=== PATIENT | male | born 1945 | race Hispanic/Latino ===

== ENCOUNTER → 2018-10-19 | Day surgery (SDC) | payer MEDICARE, BC ==
[2018-10-17 09:24] LABS: BASOPHILS % 0.7 % (0.0-1.0); EOSINOPHILS # (AUTO) 0.3 (0.0-0.4); EOSINOPHILS % 5.7 % (0.0-6.0); HEMATOCRIT 45.6 % (38.2-49.6); HEMOGLOBIN 15.6 g/dL (14.0-18.0); LYMPHOCYTES # (AUTO) 1.7 (1.0-3.2); LYMPHOCYTES % 28.9 % (18.0-39.1); MEAN CORPUSCULAR HEMOGLOBIN 31.3 pg (28-32); MEAN CORPUSCULAR HGB CONC 34.2 g/dL (31-35); MEAN CORPUSCULAR VOLUME 91.6 fL (81-99); MONOCYTES # (AUTO) 0.4 (0.2-0.8); MONOCYTES % 6.6 % (4.4-11.3); NEUTROPHILS # (AUTO) 3.3 (2.1-6.9); NEUTROPHILS % 57.8 % (38.7-80.0); PLATELET COUNT 189 x10e3/uL (140-360); RED BLOOD COUNT 4.98 x10e6/uL (4.3-5.7)
[2018-10-17 09:49] LABS: ANION GAP 9.8 mmol/L (8-16); BLOOD UREA NITROGEN 16 mg/dL (7-26); BUN/CREATININE RATIO 21 (6-25); CALCIUM 9.5 mg/dL (8.4-10.2); CARBON DIOXIDE 25 mmol/L (22-29); CHLORIDE 106 mmol/L (98-107); CREATININE, SERUM 0.76 mg/dL (0.72-1.25); EST GLOMERULAR FILTRATION RATE > 60 ML/MIN (60-); GLUCOSE 120 mg/dL (74-118); POTASSIUM 3.8 mmol/L (3.5-5.1); SODIUM 137 mmol/L (136-145)
--- NOTE | 2018-10-17 11:03 | Diagnostic Imaging Report ---
EXAM: CHEST 2 VIEWS, PA and lateral DATE: 10/17/2018 Time stamp on exam: 9:17 AM INDICATION: Preoperative for prostate surgery COMPARISON: None FINDINGS: LINES/TUBES: None LUNGS: No consolidations or edema. PLEURA: No effusions or pneumothorax. HEART AND MEDIASTINUM: Normal size and contour. BONES AND SOFT TISSUES: No acute findings. Degenerative changes at the right AC joint. IMPRESSION: No acute thoracic abnormality. Signed by: Dr. Alex Ramirez DO on 10/17/2018 11:00 AM
[~2018-10-19] MED LIST: BELLADONNA/OPIUM 60 MG SUPP PR ONE; CEFTRIAXONE SOD 1 GM/NS 50 ML 50 ML IV ONE; DEXAMETHASONE SOD PHOS INJ 4 MG/ML VIAL ONE; FENTANYL CITRATE/PF 100MCG/2 ML INJ ONE; LIDOCAINE HCL 2% LOCAL INJ 5 ML SDV VIAL INJ ONE; MIDAZOLAM HCL 2 MG/2 ML VIAL ONE; MULTIVITAMINS1 EAC7 PO; ONDANSETRON HCL INJ 2MG/ML 2ML 2 MG/ML VIAL ONE; PROPOFOL IV EMULSION 10 MG/ML 20 ML VIAL ONE; SEVOFLURANE INHAL SOLN 250 ML PEN BTL ONE
--- OUTSIDE RECORDS SUMMARY | 2018-10-19 06:59 | XMS REPORT | Continuity of Care Document ---
Author Author [facility] Organization [facility] Address Unknown Phone Unavailable Care Team Providers Care Tax Compliance Officer Name Role Phone MD Jordy, Lauren HEATON Unavailable Insurance Providers Payer name Policy type / Coverage type Policy ID Covered constitution party ID Policy [place] [place] [employer] Encounters Encounter Performer Location Date Office Visit Lauren Spence MD [facility] Apr 18, 2014 Problems Problem Effective Dates Problem Status PROSTATITIS, ACUTE Mar 14, 2013 Active HYPERGLYCEMIA, BORDERLINE Mar 14, 2013 Active FATIGUE Mar 14, 2013 Active BENIGN PROSTATIC HYPERTROPHY, WITH URINARY OBSTRUCTION Mar 22, 2013 Active PREMATURE EJACULATION Mar 22, 2013 Active NEED PROPHYLACTIC VACCINATION&INOCULATION FLU Apr 12, 2013 Active SCREENING FOR MALIGNANT NEOPLASMS OF COLON Apr 18, 2014 Active CHEST DISCOMFORT, ATYPICAL Apr 18, 2014 Active NEED FOR PROPHYLACTIC VACCINATION WITH STREPTOCOCCUS PNEUMONIAE (PNEUMOCOCCUS) AND INFLUENZA Apr 18, 2014 Active NEED FOR PROPHYLACTIC VACCINATION AND INOCULATION AGAINST INFLUENZA Apr 18, 2014 Active NEED FOR PROPHYLACTIC VACCINATION AGAINST STREPTOCOCCUS PNEUMONIAE [PNEUMOCOCCUS] Apr 18, 2014 Active PREVENTIVE HEALTH CARE Apr 18, 2014 Active Procedures Date Description Comments Mar 14, 2013 smoking status never smoker Apr 18, 2014 smoking status Never smoker Medications Medication Instructions Start Date Status MULTIVITAL TABS One po daily Mar 14, 2013 Active VITAMIN C 500 MG TABS One po daily Mar 14, 2013 Active CALCIUM + D 600-200 MG-UNIT TABS One po daily Mar 14, 2013 Active Immunizations Vaccine Date Status influenza immunization (Flu Vax) has been administered Apr 12, 2013 completed Vital Signs Date Description Test Result Mar 14, 2013 weight E&M - 3141-9 WEIGHT 156.8 lb Mar 14, 2013 height E&M - 8302-2 HEIGHT 69 in Mar 14, 2013 temperature E&M TEMPERATURE 96.4 deg f Mar 14, 2013 blood pressure, systolic - 8480-6 BP SYSTOLIC 120 mm Hg Mar 14, 2013 blood pressure, diastolic - 8462-4 BP DIASTOLIC 71 mm Hg Mar 14, 2013 pulse rate E&M - 8867-4 PULSE RATE 54 /min Mar 22, 2013 weight E&M - 3141-9 WEIGHT 162.0 lb Mar 22, 2013 blood pressure, systolic - 8480-6 BP SYSTOLIC 141 mm Hg Mar 22, 2013 blood pressure, diastolic - 8462-4 BP DIASTOLIC 62 mm Hg Mar 22, 2013 pulse rate E&M - 8867-4 PULSE RATE 55 /min Mar 22, 2013 temperature E&M TEMPERATURE 95.5 deg f Apr 12, 2013 weight E&M - 3141-9 WEIGHT 162.0 lb Apr 12, 2013 temperature E&M TEMPERATURE 96.1 deg f Apr 12, 2013 pulse rate E&M - 8867-4 PULSE RATE 64 /min Apr 12, 2013 blood pressure, systolic - 8480-6 BP SYSTOLIC 149 mm Hg Apr 12, 2013 blood pressure, diastolic - 8462-4 BP DIASTOLIC 69 mm Hg Apr 18, 2014 height E&M - 8302-2 HEIGHT 69 in Apr 18, 2014 weight Gregg&Neelima - 3141-9 WEIGHT 163.13 lb Apr 18, 2014 blood pressure, systolic - 8480-6 BP SYSTOLIC 137 mm Hg Apr 18, 2014 blood pressure, diastolic - 8462-4 BP DIASTOLIC 82 mm Hg Apr 18, 2014 temperature E&M TEMPERATURE 96.2 deg f Apr 18, 2014 pulse rate E&M - 8867-4 PULSE RATE 52 /min Results Date Description Test Name Value Reference Interpretation Status Mar 14, 2013 hemoglobin, blood HGB 15.2 g/dL 14.0-18.0 Mar 14, 2013 hematocrit, blood HCT 45.3 % 42.0-54.0 Mar 14, 2013 platelet count PLATELETS 188 K/CMM /mm3 133-450 May 01, 2014 hemoglobin, blood HGB 15.3 g/dL 14.0-18.0 May 01, 2014 hematocrit, blood HCT 45.9 % 42.0-54.0 May 01, 2014 platelet count PLATELETS 217 K/CMM /mm3 133-450 Mar 14, 2013 urine color UA COLOR Yellow null Yellow Mar 14, 2013 bacteria, urine microscopy BACTERIA URN Occasional null None Seen May 01, 2014 urine color UA COLOR Yellow null Yellow May 01, 2014 bacteria, urine microscopy BACTERIA URN Occasional null None Seen Mar 14, 2013 prostate specific antigen PSA 3.47 ng/mL 0.00-4.00 Mar 14, 2013 cholesterol, serum CHOLESTEROL 158 mg/dl <=199 Mar 14, 2013 triglyceride, serum, fasting TRIGLYCERIDE 134 mg/dl <=149 Mar 14, 2013 HDL cholesterol, serum HDL 47 mg/dl >=61 Low Mar 14, 2013 LDL cholesterol, serum LDL 84 mg/dl <=99 Mar 14, 2013 sodium, serum SODIUM 142 MEQ/L mmol/L 135-145 Mar 14, 2013 potassium, serum POTASSIUM 4.1 MEQ/L mmol/L 3.5-5.1 Mar 14, 2013 creatinine, serum CREATININE 0.6 mg/dL 0.5-1.4 Mar 14, 2013 urea nitrogen, blood BUN 15 mg/dL 7-22 Mar 14, 2013 urea nitrogen/creatinine ratio, serum BUN/CREAT 25 null 6-25 Mar 14, 2013 albumin, serum ALBUMIN 4.3 g/dL 3.5-5.0 Mar 14, 2013 calcium, serum CALCIUM 9.0 mg/dL 8.5-10.5 Mar 14, 2013 alanine aminotransferase (SGPT), serum SGPT (ALT) 27 U/L 0-65 Mar 14, 2013 aspartate aminotransferase (SGOT), serum SGOT (AST) 18 U/L 0-37 Mar 14, 2013 alkaline phosphatase, serum ALK PHOS 82 U/L 39-136 Mar 14, 2013 thyroxine, serum, free T4, FREE 0.76 ng/dl 0.76-1.46 Mar 14, 2013 thyroid stimulating hormone, serum TSH 1.690 uIU/mL 0.360-3.740 Mar 22, 2013 occult blood, stool (E&M) HEMOCCULT Negative null Negative Mar 22, 2013 occult blood, stool (E&M) HEMOCCULT Negative null Negative Mar 22, 2013 occult blood, stool (E&M) HEMOCCULT Negative null Negative May 01, 2014 cholesterol, serum CHOLESTEROL 156 mg/dl <=199 May 01, 2014 triglyceride, serum, fasting TRIGLYCERIDE 117 mg/dl <=149 May 01, 2014 HDL cholesterol, serum HDL 51 mg/dl >=61 Low May 01, 2014 LDL cholesterol, serum LDL 82 mg/dl <=99 May 01, 2014 sodium, serum SODIUM 141 MEQ/L mmol/L 135-145 May 01, 2014 potassium, serum POTASSIUM 4.7 MEQ/L mmol/L 3.5-5.1 May 01, 2014 creatinine, serum CREATININE 0.7 mg/dL 0.5-1.4 May 01, 2014 urea nitrogen, blood BUN 15 mg/dL 7-22 May 01, 2014 urea nitrogen/creatinine ratio, serum BUN/CREAT 21 null 6-25 May 01, 2014 albumin, serum ALBUMIN 4.1 g/dL 3.5-5.0 May 01, 2014 calcium, serum CALCIUM 8.9 mg/dL 8.5-10.5 May 01, 2014 alanine aminotransferase (SGPT), serum SGPT (ALT) 31 U/L 0-65 May 01, 2014 aspartate aminotransferase (SGOT), serum SGOT (AST) 22 U/L 0-37 May 01, 2014 alkaline phosphatase, serum ALK PHOS 75 U/L 39-136 May 01, 2014 ferritin, serum FERRITIN 198 ng/mL 22-275 May 01, 2014 thyroid stimulating hormone, serum TSH 1.340 uIU/mL 0.360-3.740 May 01, 2014 prostate specific antigen PSA 4.41 ng/mL 0.00-4.00 High
--- OUTSIDE RECORDS SUMMARY | 2018-10-19 06:59 | XMS REPORT ---
[facility] Address Unknown Phone Unavailable Care Team Providers Care Running Specialist Name Role Phone Isaac BARTH Unavailable Unavailable Problems This patient has no known problems. Allergies, Adverse Reactions, Alerts This patient has no known allergies or adverse reactions. Medications This patient has no known medications. Results Test Description Test Time Test Comments Text Results Atomic Results Result Comments CHEST 2 VIEWS 2018-10-17 10:58:00 [place] [address] Patient Name: ABISAI KELLOGG MR #: [id number] : 1945 Age/Sex: 73/M Req #: [id number] Adm Physician: Ordered by: MAGED BARTH MD Report #: [id number] Location: OR Room/Bed: Procedure: [id number] DX/CHEST 2 VIEWS Exam Date: 10/17/18 Exam Time: 0910 REPORT STATUS: Signed EXAM: CHEST 2 VIEWS, PA and lateral DATE: 10/17/2018 Time stamp on exam: 9:17 AM INDICATION: Preoperative for prostate surgery COMPARISON: None FINDINGS: LINES/TUBES: None LUNGS: No consolidations or edema. PLEURA: No effusions or pneumothorax. HEART AND MEDIASTINUM: Normal size and contour. BONES AND SOFT TISSUES: No acute findings. Degenerative changes at the right AC joint. IMPRESSION: No acute thoracic abnormality. Signed by: Dr. Quan Ramirez DO on 10/17/2018 11:00 AM Dictated By: QUAN RAMIREZ DO 1100 Transcribed By: RAY on 10/17/181099 COPY TO: MAGED BARTH MD
--- OUTSIDE RECORDS SUMMARY | 2018-10-19 06:59 | XMS REPORT | Clinical Summary ---
Author Author [facility] Address Unknown Phone Unavailable Care Team Providers Care Cloth Grader Name Role Phone Lauren Spence MD PCP Allergies No Known Allergies Medications End Date Status Medication Sig Dispensed Refills Start Date Active MULTIVITAMIN ORAL None Entered 0 Active sildenafil (VIAGRA) 100 Take 1 tablet 10 tablet 0 03/21/201 MG tabletIndications: (100 mg 8 Elevated PSA total) by mouth daily as needed for erectile dysfunction. Active Problems Problem Noted Date Elevated PSA 05/15/2017 Encounters Care Team Description Date Type Specialty Lauren Spence MD Annual visit for general adult medical examination with abnormal findings (Primary Dx); Elevated PSA; Mild hyperlipidemia; Midline low back pain without sciatica, unspecified chronicity; Skin abnormality; BMI 24.0-24.9, adult; Need for vaccination 03/21/2018 Office Visit Family Medicine after 10/18/2017 Immunizations Name Dates Previously Given Next Due FLUZONE HIGH-DOSE PF 03/21/2018, 05/04/2017 Family History Medical History Relation Name Comments Dementia Father Relation Name Status Comments Father Social History Date Tobacco Use Types Packs/Day Years Used Never Smoker Smokeless Tobacco: Never Used Alcohol Use Drinks/Week oz/Week Comments No Sex Assigned at Date Recorded Not on file Industry Job Start Date Occupation Not on file Not on file Not on file Travel End Travel History Travel Start No recent travel history available. Last Filed Vital Signs Time Taken Vital Sign Reading 03/21/2018 8:55 AM CDT Blood Pressure 137/74 03/21/2018 8:55 AM CDT Pulse 56 03/21/2018 8:55 AM CDT Temperature 36.8 C (98.3 F) 03/21/2018 8:55 AM CDT Respiratory Rate 20 03/21/2018 8:55 AM CDT Oxygen Saturation 98% - Inhaled Oxygen - Concentration 03/21/2018 8:55 AM CDT Weight 76.4 kg (168 lb 6.4 oz) 03/21/2018 8:55 AM CDT Height 175.3 cm (5' 9") 03/21/2018 8:55 AM CDT Body Mass Index 24.87 Plan of Treatment Health Maintenance Due Date Last Done Comments COLON CANCER SCREENING 02/05/1996 SHINGLES VACCINES (#1) 02/05/1996 65+ PNEUMOCOCCAL VACCINE 2011 (1 of 2 - PCV13) PNEUMOCOCCAL 2011 POLYSACCHARIDE VACCINE AGE 65 AND OVER INFLUENZA VACCINE 01/25/2019 03/21/2018, 05/04/2017 Procedures Comments Procedure Name Priority Date/Time Associated Diagnosis PSA, FREE Routine 03/21/2018 9:43 AM CDT PSA, TOTAL WITH REFLEX TO Routine 03/21/2018 Annual visit for general FREE 9:43 AM CDT adult medical examination with abnormal findings Elevated PSA URINALYSIS, COMPLETE, Routine 03/21/2018 Annual visit for general WITH REFLEX TO CULTURE 9:43 AM CDT adult medical examination with abnormal findings TSH REFLEX TO T4F Routine 03/21/2018 Annual visit for general 9:43 AM CDT adult medical examination with abnormal findings LIPID PANEL Routine 03/21/2018 Annual visit for general 9:43 AM CDT adult medical examination with abnormal findings Mild hyperlipidemia HEMOGLOBIN A1C Routine 03/21/2018 Annual visit for general 9:43 AM CDT adult medical examination with abnormal findings COMPREHENSIVE METABOLIC Routine 03/21/2018 Annual visit for general PANEL 9:43 AM CDT adult medical examination with abnormal findings CBC WITH PLATELET AND Routine 03/21/2018 Annual visit for general DIFFERENTIAL 9:43 AM CDT adult medical examination with abnormal findings after 10/18/2017 Results * PSA, free (03/21/2018 9:43 AM CDT) PSA, free 0.8 ng/mL [facility] II PSA, free percent 16 (L) >25 % (calc) [facility] Comment: [facility] PSA(ng/mL)Free II PSA(%) Estimated(x) Probability of Cancer(as%) 0-2.5 (*) Approx. 1 2.6-4.0(1) 0-27(2) 24(3) 4.1-10(4)0 -10 56 11-15 28 16-20 20 21-25 16 >or=26 8 >10(+) N/A >50 References:(1)Anthony et al.:Urology 60: 469-474 (2001) (2)Anthony et al.:J.Urol 168: 922-925 (2001) Fr ee PSA(%) Sensitivity(%)Specificity( %) < ii=5865 19 < ad=1822 9 (3)Marcusona et al.:ABDULLAHI 277: 9491-5442 (1996) (4)Catalona et al.:ABDULLAHI 279: 4725-9196 (1997) (x)These estimates vary with age, ethnicity, family history and DAINA results. (*)The diagnostic usefulness of % Free PSA has not been established in patients with total PSA below 2.6 ng/mL (+)In men with PSA above 10 ng/mL, prostate cancer risk is determined by total PSA alone. The Total PSA value from this assay system is standardized against the equimolar PSA standard. The test result will be approximately 20% higher when compared to the WHO-standardized Total PSA (Siemens assay). Comparison of serial PSA results should be interpreted with this fact in mind. PSA was performed using the Elisabet Anjali Immunoassay method. Values obtained from different assay methods cannot be used interchangeably. PSA levels, regardless of value, should not be interpreted as absolute evidence of the presence or absence of disease. Narrative Performed At FASTING:YES [facility] FASTING: YES Resulting Agency Comment Performing Organization Information: Site ID: [id number] Name: [facility] Address: [address] [place] [address] Director: Dr. Rojelio Jaramillo Performing Organization Address City/State/Zipcode Phone Number [facility] [address] [facility]. [place] [address] II * URINALYSIS, COMPLETE, WITH REFLEX TO CULTURE (03/21/2018 9:43 AM CDT) Color, UA YELLOW YELLOW [facility] [employer] Appearance CLEAR CLEAR [facility] Specific gravity, urine 1.024 1.001 - 1.035 [facility] pH, urine 7.5 5.0 - 8.0 [facility] Glucose, urine NEGATIVE NEGATIVE [facility] Bilirubin, UA NEGATIVE NEGATIVE [facility] Ketones, UA NEGATIVE NEGATIVE [facility] Occult blood, urine NEGATIVE NEGATIVE [facility] Protein, UA NEGATIVE NEGATIVE [facility] Nitrite, UA NEGATIVE NEGATIVE [facility] Leukocyte esterase, UA NEGATIVE NEGATIVE [facility] WBC, UA NONE SEEN < OR=5 /HPF [facility] RBC, UA NONE SEEN < OR=2 /HPF [facility] Squamous epithelial NONE SEEN < OR=5 /HPF [facility] cells, UA [facility] Bacteria, UA NONE SEEN NONE SEEN /HPF [facility] Hyaline casts, UA NONE SEEN NONE SEEN /LPF [facility] Reflex NO CULTURE INDICATED [facility] Narrative Performed At FASTING:YES [facility] FASTING: YES Resulting Agency Comment Performing Organization Information: Site ID: [id number] Name: [facility] Address: [address] [place] [phone] Director: Hilda Cross Performing Organization Address [facility] [place] [address] * TSH reflex to T4 (03/21/2018 9:43 AM CDT) TSH reflex to FT4 1.88 0.40 - 4.50 mIU/L [facility] Specimen Blood Narrative Performed At FASTING:YES [facility] FASTING: YES Resulting Agency Comment Performing Organization Information: Site ID: [id number] Name: [facility] Address: [address] [place] [phone] Director: Hilda Cross Performing Organization Address [facility] Phone Number [facility] [address] [address] * PSA, total with reflex to free (03/21/2018 9:43 AM CDT) PSA 5.0 (H) < OR=4.0 ng/mL [facility] II Specimen Blood Narrative Performed At FASTING:YES [facility] FASTING: YES Resulting Agency Comment Performing Organization Information: Site ID: [id number] Name: [facility] Address: [address] [place] [address] Director: Dr. Rojelio Jaramillo Performing Organization Address City/State/Zipcode Phone Number [facility] [address] [place] [address] II * CBC with platelet and differential (03/21/2018 9:43 AM CDT) WBC 5.6 3.8 - 10.8 Thousand/uL [facility] RBC 5.11 4.20 - 5.80 Million/uL [facility] HGB 15.9 13.2 - 17.1 g/dL [facility] HCT 46.2 38.5 - 50.0 % [facility] MCV 90.4 80.0 - 100.0 fL [facility] MCH 31.1 27.0 - 33.0 pg [facility] MCHC 34.4 32.0 - 36.0 g/dL [facility] RDW 12.7 11.0 - 15.0 % [facility] Platelet count 186 140 - 400 Thousand/uL [facility] MPV 12.4 7.5 - 12.5 fL [facility] Neutrophils, absolute 3,130 1,500 - 7,800 cells/uL [facility] Lymphocytes, absolute 1,730 850 - 3,900 cells/uL [facility] Monocytes, absolute 358 200 - 950 cells/uL [facility] Eosinophils, absolute 342 15 - 500 cells/uL [facility] Basophils, absolute 39 0 - 200 cells/uL [facility] Neutrophils 55.9 % [facility] Lymphocytes 30.9 % [facility] Monocytes 6.4 % [facility] Eosinophils 6.1 % [facility] Basophils + RC 0.7 % [facility] Specimen Blood Narrative Performed At FASTING:YES [facility] FASTING: YES Resulting Agency Comment Performing Organization Information: Site ID: [id number] Name: [facility] Address: [address] [place] [address] Director: Hilda Cross Performing Organization Address City/State/Zipcode Phone Number [facility] [address] [address] * Hemoglobin A1c (03/21/2018 9:43 AM CDT) Hemoglobin A1C 5.4 <5.7 % of total Hgb [facility] Comment: [facility] For the purpose of screening for the presence of diabetes: <5.7% Consistent with the absence of diabetes 5.7-6.4%Consistent with increased risk for diabetes (predi abetes) > or=6.5%Consistent with diabetes This assay result is consistent with a decreased risk of diabetes. Currently, no consensus exists regarding use of hemoglobin A1c for diagnosis of diabetes in children. According to [place] Diabetes Association (ADA) guidelines, hemoglobin A1c <7.0% represents optimal control in non- diabetic patients. Different metrics may apply to specific patient populations. Standards of Medical Care in Diabetes(ADA). Specimen Blood Narrative Performed At FASTING:YES [facility] FASTING: YES Resulting Agency Comment Performing Organization Information: Site ID: [id number] Name: [facility] Address: [address] [place] [phone] Director: Hilda Cross Performing Organization Address City/State/Zipcode Phone Number [facility] [address] [place] [address] * Lipid panel (03/21/2018 9:43 AM CDT) Cholesterol, total 180 <200 mg/dL [facility] HDL cholesterol 53 >40 mg/dL [facility] Triglycerides 99 <150 mg/dL [facility] LDL cholesterol 108 (H) mg/dL (calc) [facility] calculated Comment: [facility] Reference range: <100 Desirable range <100 mg/dL for primary prevention; <70 mg/dL for patients with CHD or diabetic patients with > or=2 CHD risk factors. LDL-C is now calculated using the Mary calculation, which is a validated novel method providing better accuracy than the Friedewald equation in the estimation of LDL-C. Alfa PRITCHETT et al. ABDULLAHI. 2013;310(19): 7754-0243 (http://education.Be my eyes.com/faq/EBQ632) Cholesterol/HDL ratio 3.4 <5.0 (calc) [facility] Non-HDL cholesterol 127 <130 mg/dL (calc) [facility] Comment: [facility] For patients with diabetes plus 1 major ASCVD risk factor, treating to a non-HDL-C goal of <100 mg/dL (LDL-C of <70 mg/dL) is considered a therapeutic option. Specimen Blood Narrative Performed At FASTING:YES [facility] FASTING: YES Resulting Agency Comment Performing Organization Information: Site ID: [id number] Name: [facility] Address: [address] [place] [phone] Director: Hilda Cross Performing Organization Address [facility] Phone Number [facility] [address] [address] * Comprehensive metabolic panel (03/21/2018 9:43 AM CDT) Glucose 98 65 - 99 mg/dL [facility] Comment: [facility] Fasting reference interval BUN, whole blood 16 7 - 25 mg/dL [facility] Creatinine 0.74 0.70 - 1.18 mg/dL [facility] Comment: [facility] For patients >49 years of age, the reference limit for Creatinine is approximately 13% higher for people identified as -Nepalese. EGFR Non-Afr. Nepalese 92 > OR=60 mL/min/1.73m2 [facility] EGFR 107 > OR=60 mL/min/1.73m2 [facility] BUN/creatinine ratio NOT APPLICABLE 6 - 22 (calc) [facility] Sodium 142 135 - 146 mmol/L [facility] Potassium 4.6 3.5 - 5.3 mmol/L [facility] Chloride 107 98 - 110 mmol/L [facility] CO2 29 20 - 32 mmol/L [facility] Calcium 9.4 8.6 - 10.3 mg/dL [facility] Protein 7.2 6.1 - 8.1 g/dL [facility] Albumin, S 4.6 3.6 - 5.1 g/dL [facility] Globulin, total 2.6 1.9 - 3.7 g/dL (calc) [facility] Albumin/globulin ratio 1.8 1.0 - 2.5 (calc) [facility] Total bilirubin 0.6 0.2 - 1.2 mg/dL [facility] Alkaline phosphatase 65 40 - 115 U/L [facility] AST 21 10 - 35 U/L [facility] ALT 20 9 - 46 U/L [facility] Specimen Blood Narrative Performed At FASTING:YES [facility] FASTING: YES Resulting Agency Comment Performing Organization Information: Site ID: [id number] Name: [facility] Address: [address] [place] [phone] Director: Hilda Cross Performing Organization Address City/State/Zipcode Phone Number [facility] [address] [address] after 10/18/2017 Insurance Payer Benefit Subscriber ID Type Phone Address Plan / Group MEDICARE MEDICARE xxxxxxxxxx Medicare [place], [place] PART A AND B BCBS ANTHEM xxxxxxxxxxxx PPO [facility] Advance Directives Patient has advance care planning documents on file. For more information, letha hilario contact: [facility] [address] [place] [address]
--- OUTSIDE RECORDS SUMMARY | 2018-10-19 06:59 | XMS REPORT | Continuity of Care Document ---
Author Author [facility] Organization [facility] Address Unknown Phone Unavailable Care Team Providers Care Clinical Education Coordinator Name Role Phone MD Jordy, Lauren HEATON Unavailable Insurance Providers Payer name Policy type / Coverage type Policy ID Covered democrat ID Policy [place]: [place] [employer] [place] [employer] Encounters Encounter Performer Location Date Lab Report Lauren Spence MD [facility] May 01, 2014 Problems Problem Effective Dates Problem Status [...]
--- OUTSIDE RECORDS SUMMARY | 2018-10-19 06:59 | XMS REPORT | Continuity of Care Document ---
Author Author [facility] Organization [facility] Address Unknown Phone Unavailable Care Team Providers Care Diet Consultant Name Role Phone MD Jordy, Lauren HEATON Unavailable Insurance Providers Payer name Policy type / Coverage type Policy ID Covered alliance party ID Policy [place]: [place] [employer] [employer] Encounters Encounter Performer Location Date Office Visit Lauren Spence MD [facility] Sep 30, 2014 Problems Problem Effective Dates Problem Status [...] [facility]ARE Apr 18, 2014 Active PSA, ELEVATED Aug 14, 2014 Active Procedures Date Description Comments Mar 14, 2013 smoking status never smoker Apr 18, 2014 smoking status Never smoker Aug 14, 2014 smoking status Never smoker Sep 30, 2014 smoking status Never smoker Medications Medication Instructions Start Date Status MULTIVITAL TABS One po daily Mar 14, 2013 Active VITAMIN C 500 MG TABS One po daily Mar 14, 2013 Active CALCIUM + D 600-200 MG-UNIT TABS One po daily Mar 14, 2013 Active LEVAQUIN 500 MG TABS 1 tablet daily for 28 days Aug 14, 2014 Inactive Immunizations Vaccine Date Status influenza immunization (Flu [...] HEIGHT 69 in Apr 18, 2014 weight E&M - 3141-9 WEIGHT 163.13 lb Apr 18, 2014 blood pressure, systolic - 8480-6 BP SYSTOLIC 137 mm Hg Apr 18, 2014 blood pressure, diastolic - 8462-4 BP DIASTOLIC 82 mm Hg Apr 18, 2014 temperature E&M TEMPERATURE 96.2 deg f Apr 18, 2014 pulse rate E&M - 8867-4 PULSE RATE 52 /min Aug 14, 2014 height E&M - 8302-2 HEIGHT 69 in Aug 14, 2014 weight E&M - 3141-9 WEIGHT 160.19 lb Aug 14, 2014 pulse rate E&M - 8867-4 PULSE RATE 65 /min Aug 14, 2014 blood pressure, systolic - 8480-6 BP SYSTOLIC 142 mm Hg Aug 14, 2014 blood pressure, diastolic - 8462-4 BP DIASTOLIC 76 mm Hg Aug 14, 2014 temperature E&M TEMPERATURE 96.5 deg f Sep 30, 2014 height E&M - 8302-2 HEIGHT 69 in Sep 30, 2014 blood pressure, systolic - 8480-6 BP SYSTOLIC 124 mm Hg Sep 30, 2014 blood pressure, diastolic - 8462-4 BP DIASTOLIC 78 mm Hg Sep 30, 2014 pulse rate E&M - 8867-4 PULSE RATE 63 /min Sep 30, 2014 temperature E&M TEMPERATURE 96.4 deg f Sep 30, 2014 weight E&M - 3141-9 WEIGHT 158.50 lb Results Date Description Test Name Value Reference [...] platelet count PLATELETS 217 K/CMM /mm3 133-450 Sep 30, 2014 hemoglobin, blood HGB 15.9 g/dL 14.0-18.0 Sep 30, 2014 hematocrit, blood HCT 47.0 % 42.0-54.0 Sep 30, 2014 platelet count PLATELETS 199 K/CMM /mm3 133-450 Mar 14, 2013 urine [...] 2014 urea nitrogen, blood BUN 15 mg/dL 7-May 01, 2014 urea nitrogen/creatinine ratio, serum BUN/CREAT [...] specific antigen PSA 4.41 ng/mL 0.00-4.00 High Sep 30, 2014 prostate specific antigen PSA 3.85 ng/mL 0.00-4.00
--- OUTSIDE RECORDS SUMMARY | 2018-10-19 06:59 | XMS REPORT | Continuity of Care Document ---
Author Author [facility] Organization [facility] Address Unknown Phone Unavailable Care Team Providers Care Screed Operator Name Role Phone MD Jordy, Lauren HEATON Unavailable Insurance Providers Payer name Policy type / Coverage type Policy ID Covered democrat ID Policy [place] [place] Encounters Encounter Performer Location Date Lab Report Lauren Spence MD [facility] Sep 30, 2014 Problems Problem Effective Dates [...]
--- OUTSIDE RECORDS SUMMARY | 2018-10-19 06:59 | XMS REPORT | Continuity of Care Document ---
Author Author [facility] Interface Address Unknown Phone Unavailable Problems Problem Status Onset Date Classification Date Reported Comments Source PSA, ELEVATED Active 08/14/2014 Condition 09/30/2014 [facility] SCREENING FOR MALIGNANT NEOPLASMS OF COLON Active 04/18/2014 Condition 09/30/2014 [facility] CHEST DISCOMFORT, ATYPICAL Active 04/18/2014 Condition 09/30/2014 [facility] NEED FOR PROPHYLACTIC VACCINATION WITH STREPTOCOCCUS PNEUMONIAE AND INFLUENZA Active 04/18/2014 Condition 09/30/2014 [facility] NEED FOR PROPHYLACTIC VACCINATION AND INOCULATION AGAINST INFLUENZA Active 04/18/2014 Condition 09/30/2014 [facility] NEED FOR PROPHYLACTIC VACCINATION AGAINST STREPTOCOCCUS PNEUMONIAE [PNEUMOCOCCUS] Active 04/18/2014 Condition 09/30/2014 [facility] PREVENTIVE HEALTH CARE Active 04/18/2014 Condition 09/30/2014 [facility] NEED PROPHYLACTIC VACCINATION&INOCULATION FLU Active 04/12/2013 Condition 09/30/2014 [facility] BENIGN PROSTATIC HYPERTROPHY, WITH URINARY OBSTRUCTION Active 03/22/2013 Condition 09/30/2014 [facility] PREMATURE EJACULATION Active 03/22/2013 Condition 09/30/2014 [facility] PROSTATITIS, ACUTE Active 03/14/2013 Condition 09/30/2014 [facility] HYPERGLYCEMIA, BORDERLINE Active 03/14/2013 Condition 09/30/2014 [facility] FATIGUE Active 03/14/2013 Condition 09/30/2014 [facility] Medications Medication Details Route Status Patient Instructions Ordering Provider Order Date Source LEVAQUIN 500 MG TABS 1 tablet daily for 28 days No Longer Active 08/14/2014 [facility] MULTIVITAL TABS One po daily Active 03/14/2013 [facility] VITAMIN C 500 MG TABS One po daily Active 03/14/2013 [facility] CALCIUM + D 600-200 MG-UNIT TABS One po daily Active 03/14/2013 [facility] Allergies, Adverse Reactions, Alerts Substance Category Reaction Severity Reaction type Status Date Reported Comments Source Immunizations Immunization Date Given Site Status Last Updated Comments Source influenza immunization (Flu Vax) has been administered 04/12/2013 completed [facility] Results Order Name Results Value Reference Range Date Interpretation Comments Source Chemistry PSA 3.85 ng/mL 0.00 - 4.00 09/30/2014 [facility] Hematology HGB 15.9 g/dL 14.0 - 18.0 09/30/2014 [facility] Hematology HCT 47.0 % 42.0 - 54.0 09/30/2014 [facility] Hematology PLATELETS 199 K/CMM /mm3 133 - 450 09/30/2014 [facility] Chemistry CHOLESTEROL 156 mg/dl - 199 05/01/2014 [facility] Chemistry TRIGLYCERIDE 117 mg/dl - 149 05/01/2014 [facility] Chemistry HDL 51 mg/dl >=61 05/01/2014 [facility] Chemistry CHOLESTEROL 156 mg/dl - 199 05/01/2014 [facility] Chemistry TRIGLYCERIDE 117 mg/dl - 149 05/01/2014 [facility] Chemistry HDL 51 mg/dl >=61 05/01/2014 [facility] Chemistry LDL 82 mg/dl - 99 05/01/2014 [facility] Chemistry SODIUM 141 MEQ/L mmol/L 135 - 145 05/01/2014 [facility] Chemistry POTASSIUM 4.7 MEQ/L mmol/L 3.5 - 5.1 05/01/2014 [facility] Chemistry CREATININE 0.7 mg/dL 0.5 - 1.4 05/01/2014 [facility] Chemistry BUN 15 mg/dL 7 - 22 05/01/2014 [facility] Chemistry BUN/CREAT 21 6 - 25 05/01/2014 [facility] Chemistry ALBUMIN 4.1 g/dL 3.5 - 5.0 05/01/2014 [facility] Chemistry CALCIUM 8.9 mg/dL 8.5 - 10.5 05/01/2014 [facility] Chemistry SGPT (ALT) 31 U/L 0 - 65 05/01/2014 [facility] Chemistry SGOT (AST) 22 U/L 0 - 37 05/01/2014 [facility] Chemistry ALK PHOS 75 U/L 39 - 136 05/01/2014 [facility] Chemistry FERRITIN 198 ng/mL 22 - 275 05/01/2014 [facility] Chemistry TSH 1.340 uIU/mL 0.360 - 3.740 05/01/2014 [facility] Chemistry PSA 4.41 ng/mL 0.00 - 4.00 05/01/2014 [facility] Hematology HGB 15.3 g/dL 14.0 - 18.0 05/01/2014 [facility] Hematology HCT 45.9 % 42.0 - 54.0 05/01/2014 [facility] Hematology PLATELETS 217 K/CMM /mm3 133 - 450 05/01/2014 [facility] Urinalysis UA COLOR Yellow 05/01/2014 [facility] Urinalysis BACTERIA URN Occasional 05/01/2014 [facility] Urinalysis UA COLOR Yellow 05/01/2014 [facility] Urinalysis BACTERIA URN Occasional 05/01/2014 [facility] Chemistry HEMOCCULT Negative 03/22/2013 [facility] Chemistry HEMOCCULT Negative 03/22/2013 [facility] Chemistry HEMOCCULT Negative 03/22/2013 [facility] Chemistry HEMOCCULT Negative 03/22/2013 [facility] Chemistry HEMOCCULT Negative 03/22/2013 [facility] Chemistry HEMOCCULT Negative 03/22/2013 [facility] Chemistry PSA 3.47 ng/mL 0.00 - 4.00 03/14/2013 [facility] Chemistry PSA 3.47 ng/mL 0.00 - 4.00 03/14/2013 [facility] Chemistry CHOLESTEROL 158 mg/dl - 199 03/14/2013 [facility] Chemistry TRIGLYCERIDE 134 mg/dl - 149 03/14/2013 [facility] Chemistry HDL 47 mg/dl >=61 03/14/2013 [facility] Chemistry CHOLESTEROL 158 mg/dl - 199 03/14/2013 [facility] Chemistry TRIGLYCERIDE 134 mg/dl - 149 03/14/2013 [facility] Chemistry HDL 47 mg/dl >=61 03/14/2013 [facility] Chemistry LDL 84 mg/dl - 99 03/14/2013 [facility] Chemistry SODIUM 142 MEQ/L mmol/L 135 - 145 03/14/2013 [facility] Chemistry POTASSIUM 4.1 MEQ/L mmol/L 3.5 - 5.1 03/14/2013 [facility] Chemistry CREATININE 0.6 mg/dL 0.5 - 1.4 03/14/2013 [facility] Chemistry BUN 15 mg/dL 7 - 22 03/14/2013 [facility] Chemistry BUN/CREAT 25 6 - 25 03/14/2013 [facility] Chemistry ALBUMIN 4.3 g/dL 3.5 - 5.0 03/14/2013 [facility] Chemistry CALCIUM 9.0 mg/dL 8.5 - 10.5 03/14/2013 [facility] Chemistry SGPT (ALT) 27 U/L 0 - 65 03/14/2013 [facility] Chemistry SGOT (AST) 18 U/L 0 - 37 03/14/2013 [facility] Chemistry ALK PHOS 82 U/L 39 - 136 03/14/2013 [facility] Chemistry T4, FREE 0.76 ng/dl 0.76 - 1.46 03/14/2013 [facility] Chemistry TSH 1.690 uIU/mL 0.360 - 3.740 03/14/2013 [facility] Hematology HGB 15.2 g/dL 14.0 - 18.0 03/14/2013 [facility] Hematology HCT 45.3 % 42.0 - 54.0 03/14/2013 Medical [facility] Hematology PLATELETS 188 K/CMM /mm3 133 - 450 03/14/2013 [facility] Urinalysis UA COLOR Yellow 03/14/2013 [facility] Urinalysis BACTERIA URN Occasional 03/14/2013 [facility] Urinalysis UA COLOR Yellow 03/14/2013 [facility] Urinalysis BACTERIA URN Occasional 03/14/2013 [facility] Vital Signs Vital Sign Value Date Comments Source Height 69 09/30/2014 [facility] Systolic (mm Hg) 124 09/30/2014 [facility] Diastolic (mm Hg) 78 09/30/2014 [facility] Heart Rate 63 09/30/2014 [facility] Temperature Oral (F) 96.4 F 09/30/2014 [facility] Weight 158.50 09/30/2014 [facility] Height 69 08/14/2014 [facility] Weight 160.19 08/14/2014 [facility] Heart Rate 65 08/14/2014 [facility] Systolic (mm Hg) 142 08/14/2014 [facility] Diastolic (mm Hg) 76 08/14/2014 [facility] Temperature Oral (F) 96.5 F 08/14/2014 [facility] Height 69 04/18/2014 [facility] Weight 163.13 04/18/2014 [facility] Systolic (mm Hg) 137 04/18/2014 [facility] Diastolic (mm Hg) 82 04/18/2014 [facility] Temperature Oral (F) 96.2 F 04/18/2014 [facility] Heart Rate 52 04/18/2014 [facility] Weight 162.0 04/12/2013 [facility] Temperature Oral (F) 96.1 F 04/12/2013 [facility] Heart Rate 64 04/12/2013 [facility] Systolic (mm Hg) 149 04/12/2013 [facility] Diastolic (mm Hg) 69 04/12/2013 [facility] Weight 162.0 03/22/2013 [facility] Systolic (mm Hg) 141 03/22/2013 [facility] Diastolic (mm Hg) 62 03/22/2013 [facility] Heart Rate 55 03/22/2013 [facility] Temperature Oral (F) 95.5 F 03/22/2013 [facility] Weight 156.8 03/14/2013 [facility] Height 69 03/14/2013 [facility] Temperature Oral (F) 96.4 F 03/14/2013 [facility] Systolic (mm Hg) 120 03/14/2013 [facility] Diastolic (mm Hg) 71 03/14/2013 [facility] Heart Rate 54 03/14/2013 [facility] Encounters Location Location Details Encounter Type Encounter Number Reason For Visit Attending Provider ADM Date DC Date Status Source [facility] Office Visit [id number] Lauren Watkins MD 04/18/2014 04/18/2014 Medical Group [facility] Lab Report [id number] Lauren Watkins MD 05/01/2014 05/01/2014 Medical [facility] Office Visit [id number] Lauren Watkins MD 08/14/2014 08/14/2014 Medical [facility] Lab Report [id number] Lauren Watkins MD 09/30/2014 09/30/2014 Medical [facility] Office Visit [id number] Lauren Watkins MD 09/30/2014 09/30/2014 Medical Group Outpatient [id number] LAUREN WATKINS 03/07/2015 Active [facility] Outpatient [id number] LAUREN WATKINS 05/15/2015 Active [facility] Outpatient [id number] LAUREN WATKINS 11/06/2015 Active [facility] Outpatient [id number] LAUREN WATKINS 12/26/2015 Active [facility] Outpatient [id number] LAUREN WATKINS 03/30/2016 Active [facility] Outpatient [id number] LAUREN WATKINS 09/01/2016 Active [facility] Procedures Procedure Code Date Perfomer Comments Source
--- OUTSIDE RECORDS SUMMARY | 2018-10-19 06:59 | XMS REPORT | Continuity of Care Document ---
Author Author [facility] Organization [facility] Address Unknown Phone Unavailable Care Team Providers Care Professor Of Practice Name Role Phone MD Jordy, Lauren HEATON Unavailable Insurance Providers Payer name Policy type / Coverage type Policy ID Covered green party ID Policy [place]: [place] [employer] [place] Encounters Encounter Performer Location Date Office Visit Lauren Spence MD [facility] Aug 14, 2014 Problems Problem Effective Dates Problem Status [...] Aug 14, 2014 smoking status Never smoker Medications Medication Instructions Start Date Status MULTIVITAL TABS One po daily Mar 14, 2013 Active VITAMIN C 500 MG TABS One po daily Mar 14, 2013 Active CALCIUM + D 600-200 MG-UNIT TABS One po daily Mar 14, 2013 Active LEVAQUIN 500 MG TABS 1 tablet daily for 28 days Aug 14, 2014 Active Immunizations Vaccine Date Status influenza immunization [...] 2014 temperature E&M TEMPERATURE 96.5 deg f Results Date Description Test Name Value Reference [...]
[2018-10-19 10:35] VITALS: BP 149/89
--- NOTE | 2018-11-14 02:21 | Operative Report ---
DATE OF PROCEDURE: 10/19/2018 SURGEON: Francisco Gilliland MD PREOPERATIVE DIAGNOSES: 1. Elevated PSA. 2. Bladder outlet obstructive symptoms. POSTOPERATIVE DIAGNOSES: 1. Elevated PSA. 2. Bladder outlet obstructive symptoms. PROCEDURE PERFORMED: 1. Cystoscopy. 2. Transrectal ultrasound biopsy of the prostate. ANESTHESIA: MAC. ESTIMATED BLOOD LOSS: Minimal. INDICATIONS: Mr. 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 He also reports an elevation of his PSA and prostate examination that really reveals an enlarged firm prostate. DESCRIPTION OF THE PROCEDURE: The patient was brought into the operating room, placed in supine position after initiation of general anesthesia, was prepped and draped in usual sterile fashion. Cystourethroscopy was performed using a flexible cystoscope. The anterior and posterior urethra were noted to be normal. The prostate revealed evidence of trilobar hyperplasia with moderate elevation of the median bar. The bladder was entered without difficulty. Upon entrance into the bladder, the ureteral orifices were in normal anatomical position and produce clear efflux. There were no mucosal lesions identified. There were grade 2 trabeculations noted throughout with early cellule formation, but no obvious thick. The cystoscope was then removed and the patient was placed in the left lateral decubitus position. Transrectal ultrasonography of the prostate was performed. The measurements of the prostate as recorded in the chart. The patient had no obvious hypoechoic lesions that were noted. A total of 12 biopsies were taken using the standard template. These were sent individually to pathology for microscopic analysis. There was minimal bleeding noted at the conclusion of the procedure. The probe was then removed and the patient clean. He was returned to supine position and anesthesia was reversed. He was transferred to a bed and taken to the postanesthesia care unit in good condition. Of note, the needle and instrument count were correct at the conclusion of the case. Francisco Gilliland MD HLW/MODL /[id number]
== END | disposition home or self-care (01) ==
LOC: OR 06:56
PROVIDERS: ATTEND Urology
DX: R97.20 Elevated prostate specific antigen [PSA] (principal); N41.0 Acute prostatitis; N41.1 Chronic prostatitis; N40.0 Benign prostatic hyperplasia without lower urinary tract symptoms; N32.89 Other specified disorders of bladder; Z01.810 Encounter for preprocedural cardiovascular examination; Z01.812 Encounter for preprocedural laboratory examination; Z01.818 Encounter for other preprocedural examination
CPT/HCPCS: 36415; 52000; 55700; 71046; 76872; 80048; 85025; 88305; 93005; J0696; J1100; J2001; J2250; J2405; J2704; 76998